=== PATIENT | female | born 1940 | race Caucasian/White ===

== ENCOUNTER 2022-08-04 14:34 | Emergency (ER) | payer OTHER ==
[~2022-08-04] VITALS: Ht 167.6 cm; Wt 54.0 kg
[~2022-08-04 14:34] MED LIST: ATEN-170; WARF1TAB
--- NOTE | 2022-08-04 14:44 | NUR ---
BIBA FOR PALPITATIONS. HISTORY OF A-FIB. A/O X 3, ABLE TO MAKE NEEDS KNOWN, TOLERATING WELL ON ROOM AIR.
--- NOTE | 2022-08-04 14:45 | NUR ---
18 g SL left forearm ELASTIC YARN TWISTER
[2022-08-04] MEDS ORDERED: LORAZEPAM INJ 2 MG/ML VIAL IV ONE (15:00)
[2022-08-04] MEDS ORDERED: IV NS 0.9% 1,000 ML BAG IV ONE (15:00)
[2022-08-04] MEDS ORDERED: ONDANSETRON HCL/PF 4 MG/2 ML VIAL IVP ONE (15:00)
[2022-08-04] MEDS ORDERED: IOHEXOL-300 100 ML VIAL IV ONE (15:03)
[2022-08-04] MEDS ORDERED: LORAZEPAM INJ 2 MG/ML VIAL ONE (15:17)
[2022-08-04] MEDS ORDERED: ONDANSETRON HCL/PF 4 MG/2 ML VIAL ONE (15:17)
[2022-08-04 15:28] LABS: BASOPHILS % (AUTO) 0.9 % (0.0-2.0); EOSINOPHILS % (AUTO) 0.4 % (0.0-6.0); HEMATOCRIT 35 % (33-45); HEMOGLOBIN 11.3 g/dL (11.5-14.8); LYMPHOCYTES # (AUTO) 1.1 K/uL (0.8-4.8); LYMPHOCYTES % (AUTO) 26.7 % (20.0-44.0); MEAN CORPUSCULAR HGB CONC 33 g/dl (31.0-36.0); MEAN CORPUSCULAR VOLUME 81 fL (82-100); MONOCYTES # (AUTO) 0.3 K/uL (0.1-1.30); NEUTROPHILS # (AUTO) 2.6 K/uL (1.8-8.9); PLATELET COUNT (AUTO) 185 K/uL (150-450); RED BLOOD CELL COUNT(AUTO) 4.29 MIL/uL (4.0-5.2)
--- NOTE | 2022-08-04 15:29 | NUR ---
BLOOD SAMPLES OBTAINED
[2022-08-04 15:39] LABS: CARBON DIOXIDE 28 mmol/L (21-32); CHLORIDE 102 mmol/L (98-107); CREATININE 0.8 mg/dL (0.6-1.3); GLUCOSE 143 mg/dL (74-106); POTASSIUM 3.6 mmol/L (3.5-5.1); SODIUM SERUM 138 mmol/L (136-145); UREA NITROGEN, BLOOD 14 mg/dL (7-18)
[2022-08-04 15:44] LABS: ALANINE AMINOTRANSFERASE 24 U/L (12-78); ALBUMIN 3.9 g/dL (3.4-5.0); ALKALINE PHOSPHATASE 44 U/L (46-116); ASPARTATE AMINOTRANSFERASE 22 U/L (15-37); BILIRUBIN,DIRECT 0.2 mg/dL (0.0-0.2); BILIRUBIN,TOTAL 0.6 mg/dL (0.2-1.0); LIPASE 119 U/L (73-393); TOTAL PROTEIN, SERUM 6.4 g/dL (6.4-8.2)
[2022-08-04 15:50] LABS: MAGNESIUM 2.2 mg/dL (1.8-2.4)
--- NOTE | 2022-08-04 16:06 | NUR ---
PATIENT RETURNED TO UNIT FROM [facility]
[2022-08-04] MEDS ORDERED: NA PHOS,M-B/NA PHOS,DI-BA 1 EA ENEMA RC ONE ×2 (18:30→18:38)
--- NOTE | 2022-08-04 19:57 | NUR ---
PT WAS GIVEN FLEET ENEMA BY AM SHIFT NURSE AT AROUND. SHE IS IN RESTROOM WHEN I AM ABOUT TO DO ASSESSMENT
--- NOTE | 2022-08-04 20:15 | NUR ---
PT CAME BACK FROM [facility]. CLAIMED SHE WAS ABLE TO PASS STOOL BUT NOT ALOT. SHE WANTS TO GO HOME. MADE AWARE
--- NOTE | 2022-08-04 20:40 | NUR ---
SEEN BY DR BATISTA AT BEDSIDE
--- NOTE | 2022-08-04 21:02 | NUR ---
IV NIDIA REMOVED
--- NOTE | 2022-08-04 21:10 | NUR ---
Patient discharged to home in stable condition. Written and verbal after care instructions given. Patient verbalizes understanding of instruction.
[2022-08-04 21:11] VITALS: BP 129/77
== END 2022-08-04 21:11 | disposition home or self-care (01) ==
LOC: ER 14:34
DX: K57.90 Diverticulosis of intestine, part unspecified, without perforation or abscess without bleeding (principal); K59.00 Constipation, unspecified; N94.89 Other specified conditions associated with female genital organs and menstrual cycle; R00.2 Palpitations; I48.91 Unspecified atrial fibrillation; I10 Essential (primary) hypertension; Z60.2 Problems related to living alone; Z79.899 Other long term (current) drug therapy; Z88.1 Allergy status to other antibiotic agents
CPT/HCPCS: 99285; 74177; 96374; 71045; 96361; 96375; 93005; 85025; 80048; 83605; 83690; 80076; 83735; 36415; 84484 ×2; 83880; J2060; J2405; J7030; Q9967